=== PATIENT | male | born 1965 | race African-American/Black ===

== ENCOUNTER 2016-07-23 05:20 | Day surgery (SDC) | payer BC ==
[2016-07-23] VITALS (17 sets, daily range): BP systolic 108–140; BP diastolic 59–92; PULSE 60–71; RESP 14–22; Ht 177.8 cm; Wt 106.8 kg
[~2016-07-23] VITALS: Ht 177.8 cm; Wt 106.8 kg
--- NOTE | 2016-07-23 06:34 | HPN ---
Date/Time of Note Date/Time of Note DATE: 07/23/16 TIME: 06:34 Interval H&P Admission Note Pt. seen H&P reviewed: No system changes MOOSE GODFREY MD Jul 23, 2016 06:34
[2016-07-23] MEDS ORDERED: BUPIVACAINE 0.25%/EPI (SDV) 30 ML INJ ONE (06:59)
[2016-07-23] MEDS ORDERED: DEXAMETHASONE 4 MG/ML 1 ML INJ ONE ×2 (07:21→07:44)
[2016-07-23] MEDS ORDERED: PROPOFOL 20 ML ONE (07:25)
[2016-07-23] MEDS ORDERED: MIDAZOLAM 1 MG/ML 2 ML INJ ONE (07:25)
[2016-07-23] MEDS ORDERED: ROCURONIUM 50 MG INJ ONE (07:25)
[2016-07-23] MEDS ORDERED: FENTAnyl 50 MCG/ML VIAL ONE (07:25)
[2016-07-23] MEDS ORDERED: CEFAZOLIN 1 GM INJ ONE (07:42)
[2016-07-23] MEDS ORDERED: ONDANSETRON 4 MG INJ ONE (07:44)
[2016-07-23] MEDS ORDERED: PROVENTIL HFA 6.7GM INHALER INH SCH (08:00)
[2016-07-23] MEDS ORDERED: GLYCOPYRROLATE 0.4 MG INJ ONE (08:21)
[2016-07-23] MEDS ORDERED: NEOSTIGMINE 3 MG/3 ML SYRINGE ONE (08:21)
[2016-07-23] MEDS ORDERED: ONDANSETRON 4 MG INJ IV PRN ×2 (09:00→14:00)
[2016-07-23] MEDS ORDERED: HYDROmorphONE (0.2 MG/ML) 10ML SYG IV PRN ×2 (09:00)
--- NOTE | 2016-07-23 10:25 | OPR ---
DATE OF OPERATION: 07/23/2016 PREOPERATIVE DIAGNOSIS: Left inguinal hernia without obstruction. OPERATION PERFORMED: 1. Repair with extra-large plug. 2. Left inguinal nerve block. POSTOPERATIVE DIAGNOSIS: Left inguinal hernia without obstruction (direct). SURGEON: Moose Parker MD ANESTHESIA: General. ANESTHESIOLOGIST: Rodo Verdugo DO OPERATIVE REPORT: After satisfactory general anesthesia was achieved, the abdomen was prepped and d raped. A 5 cm suprapubic transverse left groin incision was made in the groin crease and carried do wn to subcutaneous tissues. The incision was carried down to the external oblique aponeurosis, whic h was opened in the direction of its fibers. The cord and nerve were retracted. There was no indir ect sac. There was a large blowout of the floor of the canal. This was dissected circumferentially and reduced. The reduction was maintained by placement of an extra-large plug secured circumferent ially to healthy fascia with interrupted 3-0 Vicryl suture. Next, the flat portion of the mesh was cut and fashioned to fit in the floor of the canal as an overlay. It was anchored at the pubic tube rcle with 2-0 Novafil, laterally to inguinal ligament with interrupted 2-0 Novafil, and medially to conjoined tendon with interrupted 2-0 Novafil. The mesh distal to the cord was reconstituted with a single suture of 2-0 Novafil creating a new internal ring of appropriate size. The old internal ri ng was still very lax and patulous. A medium plug was then inserted lateral to the internal ring an d secured with 3-0 Vicryl. The cord and nerve were placed beneath the external oblique, which was c losed with a running 3-0 Vicryl suture. Next, a left inguinal nerve block was performed and 10 mL o f 0.25% Marcaine with epinephrine were injected into the fascia 1 cm medial and inferior to the left anterior iliac spine. Ten more mL of local anesthetic was injected directly into the wound. Scarp a fascia was closed with interrupted 3-0 Vicryl suture and skin closed with running 3-0 subcuticular Vicryl. Operative blood loss less than 10 mL. Sponge and needle counts were reported as correct x 2. The patient tolerated the procedure well and without incident or complication. Dictated By: MOOSE SIBLEY/NTS Conf#: [id number] DID#: [id number] CC: ANNA BURGOS MD;*[facility]*
[2016-07-23] MEDS ORDERED: OXYCODONE/ACETAMINOPHEN (5/325) TAB PO PRN ×2 (14:00)
[2016-07-23] MEDS ORDERED: morphine 2 MG INJ IV PRN (14:00)
== END 2016-07-23 10:37 | disposition home or self-care (01) ==
LOC: SDS 05:20
PROVIDERS: ATTEND Surgery
DX: K40.90 Unilateral inguinal hernia, without obstruction or gangrene, not specified as recurrent (principal); J45.909 Unspecified asthma, uncomplicated
CPT/HCPCS: 49505; C1781; J0690; J1100; J1170; J2250; J2405; J2710; J3010; Z7512; Z7610